=== PATIENT | female | born 1940 | race Two or more races ===

== ENCOUNTER 2025-05-14 14:41 | Outpatient (AMB) | payer MEDICARE, MEDICAID, SELFPAY ==
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
[2025-05-14 14:51] VITALS: BP 110/74; PULSE 76; O2SAT 97; BMI 21.8
--- OUTSIDE RECORDS SUMMARY | 2025-05-14 15:06 | XMS_ITS | Clinical Summary ---
Author Organization [facility] Address [address] [place] [address] Care Team Providers Care Desktop Support Associate Name Role Phone Shaista Escalona NP Primary Care Provider Source Comments PLEASE NOTE, if this patient is a minor, it may be UNLAWFUL to discuss sensitive information that is contained in these records (such as FAMILY PLANNING, MENTAL HEALTH or SUBSTANCE ABUSE) with the minor patient's parent or other person without the patient's specific authorization.[facility] Social History Tobacco Use Types Packs/Day Years Used Date Smoking Tobacco: Never Assessed Social Connections Answer Date Recorded Social Connections and Isolation 0 04/28/2022 Financial Resource Strain Answer Date R ecorded Financial Resource Strain 0 2021 Stress Answer Date Recorded Stress 0 04/28/2022 Physical Activity Answer Date Recorded Physical Activity 0 04/28/2022 Food Insecurity Answer Date Recorded Food 0 04/28/2022 Transportation Needs Answer Date Record ed Transportation 0 04/28/2022 Housing Stability Answer Date Recorded Housing 0 04/28/2022 Safety and Environment Answer Date Abdi rded Safety 0 04/28/2022 Utilities Answer Date Recorded Utilities 0 04/28/2022 Employment Answer Date Recorded Employment 0 04/28/2022 Comments Unknown Sex and Gender Information Value Date Recorded Sex Assigned at Not on file Legal Sex Female 12:51 PM PDT Gender Identity Not on file Sexual Orientation Not on file Plan of Treatment Upcoming Encounters Date Type Department Care Team (Late st Contact Info) Description 05/23/2025 2:40 PM EDT Office Visit [facility] [address] [place] [id number] [facility] [address], [facility] [address] [place] [address] Health Maintenance Due Date Last Done Comments Tobacco Screening 1940 Advanced Care Planning 1940 Hypertension Screening (#1) 1958 Medicare Annual Wellness Visit 1958 Imm-DTaP/Tdap/Td (1 - Tdap) 1959 Imm-Zoster, Recombinant (1 of 2) 1990 Bone Density Screening 2005 Falls Prevention 2005 Imm-RSV (adult) (1 - 1-dose 75+ series) 2015 Imm-Pneumococcal 50+ (2 of 2 - PCV20 or PCV21) 07/10/2020 07/10/2019 [id number] (1 - 2023- season) 2024 Alcohol and Drug Screen 10/04/2024 Depression Annual Screen 10/04/2024 Imm-Influenza (#1) 2025 06/12/2019, 0 06/29/2018, 05/26/2017, Additional history exists Insurance [place] [place] [facility] Care Teams Desktop Support Associate Relationship Specialty Start Date End Date Shaista Escalona NP [address] [place] [address] PCP - General Internal Medicine 04/07/22
--- OUTSIDE RECORDS SUMMARY | 2025-05-14 15:06 | XMS_ITS | Patient Health Record ---
Author Organization [facility] Address [address] [place] [id number] Care Team Providers Care Joint Supervisor Name Role Phone Charmaine Thrasher M.D. Primary Care Provider Unavailable Jimi Boswell Unavailable [phone] Allergies Allergen (clinical drug ingredient) Drug/Non Drug Allergy documented on EMR Reaction Allergy Type Onset Date Status Penicillin hives Drug Allergy Active Reason For Referral No Information Medications Medication SIG (Take, Route, Frequency, Duration) Notes Start Date End Date Status Latanoprost 0.005 % INSTILL 1 DROP INTO BOTH EYES AT BEDTIME Ophthalmic; Duration: [address] 20 MG TAKE 1 TABLET BY MOUTH TWICE A DAY Oral; Duration: 90 Active Carteolol HCl 1 % INSTILL 1 DROP INTO BOTH EYES TWICE A DAY Ophthalmic; Duration: 18 Active Omeprazole 20 MG TOME LUH CAPSULA POR V A ORAL TODOS LOS D FOR REFLUX Oral; Duration: 30 Not-Taking Carbidopa-Levodopa A ctive Ammonium Lactate 12 % 1 application to affected area Externally to feet Twice a day; Duration: 30 days Active Vitamin D Active Calcium Carbonate-Vitamin D 600-400 MG-UNIT TOME LUH TABLETA TODOS LOS D? Oral; Duration: 90 Active Brimonidine Tartrate 0.2 % INSTILL 1 OLLIE P INTO BOTH EYES TWICE A DAY Ophthalmic; Duration: 18 Active Sulfamethoxazole-Trimethop rim 800-160 MG TAKE 1 TABLET BY MOUTH EVERY 12 HOURS FOR 5 DAYS Oral; Duration: 5 Active Sertraline HCl 25 MG TAKE 1 TABLET BY [facility] EVERYDAY AT BEDTIME Oral; Duration: 30 Active PEG 3350-KCl-Na Bicarb-NaCl 420 GM MIX AND DRINK 8 OZ PO Q 10 MINUTES Oral; Duration: 1 Active Nitrofurantoin Monohyd Macro 100 MG TAKE 1 TABLET BY MOUTH TWICE A DAY FOR 7 DAYS Oral; Duration: 7 Active Naproxen 375 MG TAKE 1 TABLET BY KANDY TH TWICE A DAY NEEDED FOR WORSE PAIN WITH FOOD. TAKE SPARINGLY Oral; Duration: 15 Active Mi-Acid Gas Relief 80 MG CHEW 1 TABLET 3 TIMES A DAY AFTER MEALS AND BEDTIME NEEDED FOR GAS Oral; Duration: 30 Active Immunizations Vaccine Route Administration Date Status Comme nts COVID-19 Ziptr & Arturo/Radha Unknown 01/01/2022 R efused Social History Tobacco Use: Social History Observation Description Date Details (start date - stop date) Never Smoker NA - NA Tobacco Use/Smoking Question Answer Notes Are you a: nonsmoker Additional Findings: Tobacco Non-User Current no n-smoker Alcohol Screen Question Answer Notes Did you have a drink containing alcohol in the p ast year? No Points 0 Interpretation Negative Tobacco use other than smoking: Question Answer Notes Are you an other tobacco user? No Problems Problem Type SNOMED Code ICD Code Onset Dates Problem Status W/U Status Risk Notes Problem Bilateral atherosclerosis of arteries of lower limbs (disorder) ([id number] ) Atherosclerosis of [place] artery of both lower extremities, with unspecified presence of clinical manifestation (I70.203) Active confirmed Plan Of Treatment Pending Test Test Name Order Date [id number] NAIL, 6 OR MORE 02/05/2020 89504-UTUCFII NAIL, 6 OR MORE 04/15/2020 90900-KEERPAC NAIL, 6 OR MORE 06/27/2020 03911-EJJUXSD NAIL, 6 OR MORE 09/05/2020 29717-TRPNSSL NAIL, 6 OR MORE 01/29/2021 91767-HMPFEQB NAIL, 6 OR MORE 04/21/2021 49680-XDUWCCY NAIL, 6 OR MORE 07/17/2021 10583-DRCQYGV NAIL, 6 OR MORE 10/23/2021 44459-HBTJYZJ NAIL, 6 OR MORE 01/01/2022 70356-JNUHSMK NAIL, 6 OR MORE 11/13/2020 99170-Bswztzsx Plate 11/13/2020 18148-Xuhajjpc Plate 01/01/2022 23689-Butfpuos Plate 10/23/2021 31034-Nhzjqfgd Plate 07/17/2021 40090-Upndrnzh Plate 04/21/2021 40371-Scmtsxry Plate 01/29/2021 24529-Qdmhzjom Plate 09/05/2020 11750-Ejxiemtb Plate 06/27/2020 45815-Mscmyzcw Plate 04/15/2020 25971-Ecsnbhti Plate 02/05/2020 62077-Iuaycjbq Plate Each Additional 01/2020 09550-Peufuwdw Plate Each Additional 68138-Hbocgjnl Plate Each Additional 24745-Ohmibsvt Plate Each Additional 12/2019 08898-Ubltbpmd Plate Each Additional 50202-Ojdxdcut Plate Each Additional 13280-Yolotwjm Plate Each Additional 38846-Jurevegb Plate Each Additional 89374-Elputpwn Plate Each Additional 52977-Rmalkvtp Plate Each Additional 07/2021 98850-PZXU SKIN LESIONS, OVER 4 01/02/20 22 85059-TGYC SKIN LESIONS, OVER 4 10/23/19 22 59148-HVGC SKIN LESIONS, OVER 4 07/17/20 21 35839-AUSQ SKIN LESIONS, OVER 4 04/21/20 21 56831-SAMR SKIN LESIONS, OVER 4 01/30/20 21 Medical (General) History Medical History History ICD Code Anxiety Pre-Diabetic Neuropathy Chicken pox Osteoporosis Reflux Surgical History Surgery Date(Month/Year) tubal ligation eye surgery
== END 2025-05-14 15:15 | disposition home or self-care (01) ==
PROVIDERS: PCP Pediatrics; Visit Provider Psychiatry & Neurology Neurology
DX: G20.B1 Parkinson's disease with dyskinesia, without mention of fluctuations (principal)
CPT/HCPCS: 99204; G2211

== ENCOUNTER → 2025-05-14 14:41 | Outpatient (BNVA) | payer MEDICARE, MEDICAID, SELFPAY | PROVIDERS: PCP Pediatrics; Visit Provider Psychiatry & Neurology Neurology | DX: G20.B1 Parkinson's disease with dyskinesia, without mention of fluctuations (principal) | CPT/HCPCS: 99202 ==

== ENCOUNTER → 2025-06-06 23:59 | Outpatient (BNV) | payer MEDICARE, MEDICAID, SELFPAY | PROVIDERS: PCP Pediatrics; Visit Provider Psychiatry & Neurology Neurology | DX: G20.B1 Parkinson's disease with dyskinesia, without mention of fluctuations (principal); F32.A Depression, unspecified; K59.09 Other constipation | CPT/HCPCS: G0180 ==

== ENCOUNTER 2025-07-31 13:00 | Outpatient (REF) | payer MEDICARE, SELFPAY ==
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
--- OUTSIDE RECORDS SUMMARY | 2025-07-27 23:59 | XMS_ITS | Continuity of Care Document ---
Author Organization [facility] Address [address] [place] [address]- Care Team Providers Care Recruiting Intern Name Role Phone Charmaine Thrasher DO Primary Care Physician Encounter [facility] Date(s): 06/27/25 - 07/27/25 [facility] [address] [place], [place] [address] Encounter Type: Triage Allergies, Adverse [...] (oldterm) 8 03/13/09 Giv en 1Result Comment: [facility]: [id number] 2Result Comment: [facility]: [phone] 3Admin Note: vis 03/13/94 4Result Comment: [11/05/2015] [...] Refills, Maintenance, 08/08/24 11:50:00 AM EST, Tablet, [facility], Partial fill upon patient request if [...] 4 Refills, Maintenance, 05/03/25 2:25:00 PM EDT, [facility], 28, TOME LUH TABLETA POR VIA ORAL [...] 0 Refills, Maintenance, 12/04/24 4:04:00 PM EST, [facility] 93182, 30, APPLY 2.25 INCHES TOPICALLY4 TIMES DAILY, [...] capsule, 3 Refills, 11/09/24 2:25:00 PM EST, [facility]/pharmacy #[id number], 163, cm, 11/09/24 13:31:00 EST, Height, [...] 6 Refills, Maintenance, 05/02/25 1:04:00 PM EDT, [facility], 162, cm, 04/16/25 20:22:00 EDT, Height, 58, kg, 04/16/25 20:22:00 EDT, Dry Weight Start Date: 05/02/25 Status: Ordered Medication Dispense Status: Completed Quantity: 84.0 Unit: tablet Total Allowed Fills: 1 Fills Dispensed: 0 EpiPen 2-Luciano 0.3 mg injectable kit = 0.3 mg, Intramuscular, Once, PRN anaphylaxis, # 1 box, 0 Refills, Soft Stop, 10/28/17 3:22:46 PM EST, [facility] Start Date: 10/28/17 Status: Ordered Medication Dispense [...] 3:36:00 PM EDT, Route to Pharmacy Electronically, [facility]pharmacy #[id number], Partial fill upon patientrequest if the prescription [...] Maintenance, 05/04/25 12:46:00 PM EDT, [facility], 30, INSTILL 1 SPRAY INTO BOTH NOSTRILS [...] 11 Refills, Maintenance, 11/09/24 2:23:00 PM EST, [facility]pharmacy #[id number], 30,DISSOLVE 17GM INTO 4-8 OZ OF [...] Refills, Maintenance, 11/12/24 12:25:00 PM EST, Tablet, [facility]pharmacy #[id number], Partial fill upon patient request if [...] 5 Refills, Maintenance, 05/24/25 3:36:00 PM EDT,Capsule, [facility]pharmacy #[id number], Partial fill upon patient request if [...] Maintenance, 06/11/25 7:47:00 AM EDT, [facility], 162, cm, 05/24/25 15:03:00 EDT, Height, 58, [...] Refills, Maintenance, 01/07/25 9:06:00 PM EDT, Tablet, [facility]/pharmacy #[id number], Partial fill upon patient request if [...] 2:23:00 PM EST, Route to Pharmacy Electronically, [facility]pharmacy #[id number], 163, cm, 11/09/24 13:31:00 EST, Height, [...] Refills, Maintenance, 02/16/25 3:29:00 PM EDT, Tablet, [facility]pharmacy #[id number], Partial fill upon patient request if [...] 1 Refills, Maintenance, 02/16/25 3:29:00 PM EDT, [facility]pharmacy #[id number], 163, cm, 01/15/25 12:48:00 EDT, Height, [...] Instructions ReplaceRequired Details, Route to Pharmacy Electronically, [facility]pharmacy #[id number], 163, cm, 11/09/24 13:31:00 EST, Height, [...] Replace Required Details, Route to Pharmacy Electronically, [facility], 163, cm, 08/08/24 11:01: 00 EST, [...] :00:00 PM EDT, Route to Pharmacy Electronically, [facility] #[id number], 162, cm, 04/16/25 20:22:00 EDT, Height, [...] Refills, Maintenance, 04/14/24 4:47:00 PM EDT, Tablet, [facility], 163, cm, 04/13/24 13:52:00 EDT, Height, [...] Palpitations Confirmed Active Parkinson's disease Confirmed Active *[id number] are Partner Padmini Mukherjee Confirmed Active MOLST [...] Care Team Personnel Name: Dana Whalen Position: [facility] Flight Inspector Member Role: Decorating Supervisor Name: Maddi Lemons RN Position: [facility] Hospital Travel Attendants Member Role: Primary Care Nurse Name: Charmaine Thrasher DO Position: [facility] Physician - Primary Care Member Role: PCP Address: [address] [place] [address] [facility] [address] Telecom: Name: Bette Espinoza RN Position: [facility] RN Member Role: Primary Care Nurse Name: Rubén Vogel RN Position: [facility] RN Member Role: Primary Care Nurse Name: Inna Cadet RN Position: [facility] RN Member Role: Primary Care Nurse Care Team Related Persons Name: RONAK CARSON Name: RONAK SAM Name: YOLIS BARAHONA Insurance Providers Guarantor name: [employer] Plan Information #: 1 Payer: MEDICARE B Payer Identifier: NA Member Number: [id number] Group Number: NA Subscriber Identifier: NA Relationship to Subscriber: self Coverage Type: NA Coverage Verification Date: NA Telecom: NA Address: NA Health Plan Information #: 2 [facility] Payer Identifier: NA Member Number: [id number] Group Number: [id number] Subscriber Identifier: NA Relationship to Subscriber: self Coverage Type: MEDICAID Coverage Verification Date: NA Telecom: NA Address:
--- OUTSIDE RECORDS SUMMARY | 2025-08-01 07:24 | XMS_ITS | Clinical Summary ---
Author Organization [facility] Address [address] [place] [address] Care Team Providers Care Call Center Rn Name Role Phone Shaista Escalona NP Primary Care Provider [phone] Source Comments PLEASE NOTE, if this patient is a minor, it may be UNLAWFUL to discuss sensitive information that is contained in these records (such as FAMILY PLANNING, MENTAL HEALTH or SUBSTANCE ABUSE) with the minor patient's parent or other person without the patient's specific authorization.[facility] Medications No known medications Active Problems No known active problems Encounters Date Type Department Care Team Description 07/10/2025 2:20 PM EDT Office Visit [facility] [address] [place] [phone] Alyssa Brown DMD 07/03/2025 9:00 AM EDT Office Visit [facility] [address] [place] [phone] Alyssa Brown DMD 05/23/2025 2:40 PM EDT Office Visit [facility] [address] [place] [phone] Avila Main RDH from Last 3 Months Social History Tobacco Use Types Packs/Day Years Used Date Smoking Tobacco: Never Smokeless Tobacco: Never Tobacco Cessation:Counseling Given: Not Answered Social Connections Answer Date Recorded Social Connections [...] on file Sexual Orientation Not on file Last Filed Vital Signs Vital Sign Reading Time Taken Comments Blood Pressure 129/80 07/10/2025 2:18 PM EDT Pulse 82 07/10/2025 2:18 PM EDT Temperature - - Respiratory Rate - - Oxygen Saturation - - Inhaled Oxygen Concentration - - Weight - - Height - - Body Mass Index - - Plan of Treatment Upcoming Encounters Date Type Department Care Team (Late st Contact Info) Description 08/07/2025 9:00 AM EST Office Visit [facility] [address] [place] [address] Franko Merino, RHD [address] [place] [address] Health Maintenance Due Date Last Done Comments Dental Prophy 1940 Advanced Care Planning 1940 Medicare Annual Wellness Visit 1958 Imm-Zoster, Recombinant (1 of 2) 1990 Bone Density Screening 2005 Falls Prevention 2005 Imm-RSV (adult) (1 - 1-dose 75+ series) 2015 Imm-DTaP/Tdap/Td (1 - Tdap) 10/06/2019 10/05/2019, 0 03/13/2009 Alcohol and Drug Screen 10/04/2024 Depression Annual Screen 10/04/2024 Yaw-CEVTA-30 ( - season) 2025 Imm-Influenza (#1) 2025 11/09/2024, 0 10/09/2022, 06/12/2019, Additional history exists Dental BW 05/25/2026 05/23/2025 Dental Examination 05/25/2026 05/23/2025 Dental Perio Charting 05/25/2026 05/23/2025 Hypertension Screening (#1) 07/10/2026 Tobacco Screening 07/10/2026 07/10/2025 Dental FMX/Pano 05/25/2030 05/23/2025 Imm-Pneumococcal 50+ Completed 07/10/2019, 11/05/2015, 03/13/2009 Procedures Procedure Name Priority Date/Time Associated Diagnosis Comments 22 DL RESIN-BASED COMPOSITE TWO SURFACES ANTERIOR Routine 07/10/2025 2:20 PM EDT Caries CASE PRESENTATION SUBS DTL & EXTENSIVE TX PLN Routine 07/10/2025 2:20 PM EDT Caries 12 MO RESIN-BASED COMPOSITE - TWO SURFACES POSTERIOR Routine 07/03/2025 9:00 AM EDT Caries 6 DL RESIN-BASED COMPOSITE TWO SURFACES ANTERIOR Routine 07/03/2025 9:00 AM EDT Caries CASE PRESENTATION SUBS DTL & EXTENSIVE TX PLN Routine 07/03/2025 9:00 AM EDT Caries DENTAL CASE MANAGEMENT - MOTIVATIONAL INTV Routine 05/23/2025 2:40 PM EDT Caries of enamel (incipient) Caries INTRAORAL - COMP SERIES OF RADIOGRAPHIC IMAGES Routine 05/23/2025 2:40 PM EDT Caries of enamel (incipient) Caries COMP ORAL EVALUATION - NEW/ESTABLISHED PATIENT Routine 05/23/2025 2:40 PM EDT Caries of enamel (incipient) Caries CARIES RISK ASSESSMENT & DOC FINDING HIGH RISK Routine 05/23/2025 2:40 PM EDT Caries of enamel (incipient) Caries NUTRITIONAL COUNSELING CONTROL OF DENTAL DISEASE Routine 05/23/2025 2:40 PM EDT Caries of enamel (incipient) Caries ORAL HYGIENE INSTRUCTIONS Routine 2024 2:40 PM EDT Caries of enamel (incipient) Caries ORAL CANCER SCREENING Routine 05/23/2025 2:40 PM EDT Caries of enamel (incipient) Caries CASE PRESENTATION SUBS DTL & EXTENSIVE TX PLN Routine 05/23/2025 2:40 PM EDT Caries Caries of enamel (incipient) 14 B(V) COMPOSITE - WISDOM (NON BILLABLE) Routine 05/23/2025 12:00 AM EDT 3 B(V) COMPOSITE - WISDOM (NON BILLABLE) Routine 05/23/2025 12:00 AM EDT 20 CROWN - PORCELAIN FUSED PREDOMINANTLY BASE METAL Routine 05/23/2025 12:00 AM EDT 7 CROWN - PORCELAIN FUSED PREDOMINANTLY BASE METAL Routine 05/23/2025 12:00 AM EDT 11 DIFL COMPOSITE - WISDOM (NON BILLABLE) Routine 05/23/2025 12:00 AM EDT 9 DIL COMPOSITE - WISDOM (NON BILLABLE) Routine 05/23/2025 12:00 AM EDT 8 DL COMPOSITE - WISDOM (NON BILLABLE) Routine 05/23/2025 12:00 AM EDT 6 ML COMPOSITE - WISDOM (NON BILLABLE) Routine 05/23/2025 12:00 AM EDT 21 MO COMPOSITE - WISDOM (NON BILLABLE) Routine 05/23/2025 12:00 AM EDT 22 DL COMPOSITE - WISDOM (NON BILLABLE) Routine 05/23/2025 12:00 AM EDT 27 DL COMPOSITE - WISDOM (NON BILLABLE) Routine 05/23/2025 12:00 AM EDT 28 B(V) COMPOSITE - WISDOM (NON BILLABLE) Routine 05/23/2025 12:00 AM EDT 29 B(V) COMPOSITE - WISDOM (NON BILLABLE) Routine 05/23/2025 12:00 AM EDT 15 LO AMALGAM - WISDOM (NON BILLABLE) Routine 05/23/2025 12:00 AM EDT 14 MOL AMALGAM - WISDOM (NON BILLABLE) Routine 05/23/2025 12:00 AM EDT 29 DO AMALGAM - WISDOM (NON BILLABLE) Routine 05/23/2025 12:00 AM EDT 3 MO AMALGAM - WISDOM (NON BILLABLE) Routine 05/23/2025 12:00 AM EDT 2 DOL AMALGAM - WISDOM (NON BILLABLE) Routine 05/23/2025 12:00 AM EDT from Last 3 Months Insurance [place]ICARE - [place] DENT[place] Care Teams Call Center Rn Relationship Specialty Start Date End Date Shaista Escalona NP [address] [place] [address] PCP - General Internal Medicine 04/07/22
== END 2025-07-31 13:01 | disposition home or self-care (01) ==
LOC: HO.MMNH1L 13:00
PROVIDERS: Visit Provider Physician Assistant Medical
DX: Z13.89 Encounter for screening for other disorder (principal)

== ENCOUNTER 2025-08-14 12:52 | Outpatient (AMB) | payer MEDICARE, MEDICAID, SELFPAY ==
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
[2025-08-14 12:57] VITALS: BP 118/70; PULSE 94; O2SAT 94
--- OUTSIDE RECORDS SUMMARY | 2025-08-14 14:36 | XMS_ITS | Clinical Summary ---
Author Organization [facility] Address [address] [place] [address] Care Team Providers Care Grinder Set Up Operator Surface Name Role Phone Shaista Escalona NP Primary [...] Description 07/10/2025 2:20 PM EDT Office Visit [facility] [address] [place] [phone] Alyssa Brown DMD 07/03/2025 9:00 AM EDT Office Visit [facility] [address] [place] [phone] Alyssa Brown DMD 05/23/2025 2:40 PM EDT Office Visit [facility] [address] [place] [address] Av[facility] Main RDH from Last 3 Months [...] Mass Index - - Plan of Treatment Health Maintenance Due Date Last Done Comments Dental Prophy 1940 Advanced Care Planning 1940 Medicare Annual Wellness Visit 1958 Imm-Zoster, Recombinant (1 of 2) 1990 Bone Density Screening 2005 Falls Prevention 2005 Imm-RSV (adult) (1 - 1-dose 75+ series) 2015 Imm-DTaP/Tdap/Td (1 - Tdap) 10/06/2019 10/05/2019, 0 03/13/2009 Alcohol and Drug Screen 10/04/2024 Depression Annual Screen 10/04/2024 Fqc-[id number]-80 ( - season) 2025 Imm-Influenza (#1) 2025 [...] from Last 3 Months Insurance [place] Care Teams Grinder Set Up Operator Surface Relationship Specialty [place] [address] [place] [id number] PCP - General Internal Medicine 04/07/22
--- OUTSIDE RECORDS SUMMARY | 2025-08-14 14:36 | XMS_ITS | Patient Health Record ---
Author [facility] Address [address] [place] [phone] Care Team Providers Care Safety Director Name Role Phone Charmaine Thrasher M.D. 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, with unspecified presence of clinical manifestation (I70.203) Active confirmed Plan Of Treatment Pending Test Test Name Order Date [id number] NAIL, 6 OR MORE 02/05/2020 45573-KPFXVSW NAIL, 6 OR MORE 04/15/2020 27003-LLNHSNC NAIL, 6 OR MORE 06/27/2020 46217-GNUISZR NAIL, 6 OR MORE 09/05/2020 45895-POVOJRU NAIL, 6 OR MORE 01/29/2021 11497-ZTRSUUC NAIL, 6 OR MORE 04/21/2021 29493-PPMHBSA NAIL, 6 OR MORE 07/17/2021 89090-RGCGQXW NAIL, 6 OR MORE 10/23/2021 90515-NXMXCDU NAIL, 6 OR MORE 01/01/2022 40238-BYUDUTA NAIL, 6 OR MORE 11/13/2020 29846-Lpeptgnb Plate 11/13/2020 20188-Gcuyzrgv Plate 01/01/2022 37192-Crkyfabl Plate 10/23/2021 01312-Ezfxsfnc Plate 07/17/2021 32302-Hvuuvcvy Plate 04/21/2021 70082-Ajzaczit Plate 01/29/2021 36631-Rhbkrbou Plate 09/05/2020 10294-Esaccsto Plate 06/27/2020 56451-Hupfleim Plate 04/15/2020 54080-Dpzjuuep Plate 02/05/2020 66671-Nagozzpd Plate Each Additional 01/2020 16594-Whgwvdoj Plate Each Additional 50608-Favoztcz Plate Each Additional 57127-Ljumdsqo Plate Each Additional 12/2019 89396-Cpvflvlk Plate Each Additional 84493-Qsddfqkp Plate Each Additional 92305-Hgwsctlu Plate Each Additional 50098-Gpbjhleq Plate Each Additional 89610-Lqsuimna Plate Each Additional 24723-Xrpahjnm Plate Each Additional 07/2021 13669-WUZW SKIN LESIONS, OVER 4 01/02/20 22 59121-KOYE SKIN LESIONS, OVER 4 10/23/19 22 01685-BKBX SKIN LESIONS, OVER 4 07/17/20 21 57874-OOWA SKIN LESIONS, OVER 4 04/21/20 21 05397-GXFQ SKIN LESIONS, OVER 4 01/30/20 21 Medical (General) History Medical History History ICD Code Anxiety Pre-Diabetic Neuropathy Chicken pox Osteoporosis Reflux Surgical History Surgery Date(Month/Year) tubal ligation eye surgery
== END 2025-08-14 13:35 | disposition home or self-care (01) ==
LOC: HO.HSMS 12:52
PROVIDERS: PCP Pediatrics; Visit Provider Psychiatry & Neurology Neurology
DX: G20.B1 Parkinson's disease with dyskinesia, without mention of fluctuations (principal); B02.9 Zoster without complications
CPT/HCPCS: 99214; G2211

== ENCOUNTER → 2025-08-14 12:52 | Outpatient (BNVA) | payer MEDICARE, MEDICAID, SELFPAY | PROVIDERS: PCP Pediatrics; Visit Provider Psychiatry & Neurology Neurology | DX: G20.B1 Parkinson's disease with dyskinesia, without mention of fluctuations (principal); B02.9 Zoster without complications | CPT/HCPCS: 99212 ==